=== PATIENT | male | born 1995 | race Two or more races ===

== ENCOUNTER 2019-06-18 11:56 | Emergency (ER) | payer MEDICAID, OTHER, SELFPAY ==
[~2019-06-18] VITALS: Ht 188 cm; Wt 78.0 kg
[2019-06-18] MEDS ORDERED: CEFTRIAXONE 250 MG IM ONE (13:00)
[2019-06-18] MEDS ORDERED: AZITHROMYCIN 500 MG TABLET PO ONE (13:00)
[2019-06-18] MEDS ORDERED: AZITHROMYCIN 500 MG TABLET ONE (13:04)
[2019-06-18] MEDS ORDERED: CEFTRIAXONE 250 MG ONE (13:05)
--- NOTE | 2019-06-18 13:52 | NUR ---
Patient/Caregiver given discharge instructions and they have confirmed that they understand the instructions. Patient ambulatory with steady gait.
[2019-06-18 13:53] VITALS: BP 142/83
== END 2019-06-18 13:56 | disposition home or self-care (01) ==
LOC: ED 12:50
DX: Z20.2 Contact with and (suspected) exposure to infections with a predominantly sexual mode of transmission (principal)
CPT/HCPCS: 96372; 99283; J0696